=== PATIENT | female | born 1960 | race Caucasian/White ===

== ENCOUNTER 2017-09-03 05:22 | Day surgery (SDC) | payer MEDICAID ==
[~2017-09-03] VITALS: Ht 152.4 cm; Wt 65.8 kg
[2017-09-03] MEDS ORDERED: LACTATED RINGERS 1,000 ML IV SCH (06:15)
[2017-09-03] MEDS ORDERED: NORMAL SALINE 0.9% 10 ML SYR ONE (07:09)
[2017-09-03] MEDS ORDERED: BUPIVACAINE HCL/PF 0.5% (5MG/ML) 10ML ONE (07:09)
[2017-09-03] MEDS ORDERED: LIDOCAINE HCL 1% 20ML VIAL (Pyxis) INJ ONE (07:10)
[2017-09-03] MEDS ORDERED: BACITRACIN 50,000 UNITS/VIAL ONE (07:10)
[2017-09-03] MEDS ORDERED: ROCURONIUM BROMIDE 10MG/ML VIAL 5ML IV ONE (07:28)
[2017-09-03] MEDS ORDERED: FENTANYL CITRATE/PF 50MCG/ML 5ML VIAL ONE (07:29)
[2017-09-03] MEDS ORDERED: LIDOCAINE HCL/PF 1% 10 MG/ML 5ML VIAL ONE (07:29)
[2017-09-03] MEDS ORDERED: SUCCINYLCHOLINE CHLORIDE 200MG/10ML VIAL IV ONE (07:29)
[2017-09-03] MEDS ORDERED: PROPOFOL 200MG/20ML VIAL IV ONE ×2 (07:29→08:50)
[2017-09-03] MEDS ORDERED: MIDAZOLAM HCL 2 MG/2 ML VIAL ONE (07:29)
[2017-09-03] MEDS ORDERED: AMIT25TA9 PO (08:00)
[2017-09-03] MEDS ORDERED: PANT40TA4 PO (08:00)
[2017-09-03] MEDS ORDERED: HYDR-4001 PO (08:00)
[2017-09-03] MEDS ORDERED: HYDROMORPHONE HCL/PF 2MG/ML CPJ IV PRN ×2 (08:15→15:53)
[2017-09-03] MEDS ORDERED: MEPERIDINE HCL/PF 25MG/ML CPJ IV PRN (08:15)
[2017-09-03] MEDS ORDERED: LABETALOL HCL 5MG/ML VIAL 20ML IV PRN (08:15)
[2017-09-03] MEDS ORDERED: ONDANSETRON HCL 4MG/2ML VIAL IV PRN ×2 (08:15→15:53)
[2017-09-03] MEDS ORDERED: SKIN ADHESIVE 0.7 GM EA TOP ONE (08:26)
[2017-09-03] MEDS ORDERED: NEOSTIGMINE METHYLSULFATE 1MG/ML 10 ML VIAL ONE ×2 (08:28→08:48)
[2017-09-03] MEDS ORDERED: GLYCOPYRROLATE 0.2 MG/ML 2ML VIAL ONE (08:28)
[2017-09-03 09:39] VITALS: BP 140/70
[2017-09-03] MEDS ORDERED: SODIUM CHLORIDE 0.45% 1,000 ML IV SCH (12:40)
== END 2017-09-03 11:30 | disposition home or self-care (01) ==
LOC: OR 05:22
PROVIDERS: ATTEND Specialist
DX: R10.32 Left lower quadrant pain (principal); K29.70 Gastritis, unspecified, without bleeding; F17.200 Nicotine dependence, unspecified, uncomplicated; E78.5 Hyperlipidemia, unspecified; K59.09 Other constipation; M54.5 Low back pain; Z79.899 Other long term (current) drug therapy; Z88.0 Allergy status to penicillin; Z98.890 Other specified postprocedural states
CPT/HCPCS: 49320; A4216; G0168; J0330; J2175; J2250; J2405; J2710; J3010; J3490; J7120; J2704